=== PATIENT | female | born 1985 | race Two or more races ===

== ENCOUNTER 2017-04-09 13:18 | Emergency (ER) | payer SELFPAY ==
[~2017-04-09] VITALS: Ht 170.2 cm; Wt 88.0 kg
[2017-04-09 13:45] VITALS: BP 142/70
== END 2017-04-09 16:14 | disposition left against medical advice (07) ==
LOC: ER 13:18
DX: R42 Dizziness and giddiness (principal); Z53.21 Procedure and treatment not carried out due to patient leaving prior to being seen by health care provider